=== PATIENT | male | born 1985 | race Hispanic/Latino ===

== ENCOUNTER 2017-10-18 22:12 | Emergency (ER) | payer OTHER ==
[2017-10-18 22:20] VITALS: BP 117/71; RESP 18; TEMP 98.5; O2SAT 96
--- NOTE | 2017-10-18 23:05 | ED PDOC ---
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 Patient states that while playing football tonight, he fell while running onto his outstretched left hand, and now has pain worsening when he bends his 4th and 5th digits. He denies taking any medications prior to arrival. Otherwise, (-) head injury, (-) loss of consciousness, (-) prior hand injury, (-) other complaints at this time. Right hand dominant. PMD: Dr. Ospina Past Medical History Reviewed: Historical Data, Nursing Documentation, Vital Signs Vital Signs: Last Vital Signs Temp 98.5 F 10/18/17 22:18 Pulse 110 H 10/18/17 22:18 Resp 18 10/18/17 22:18 BP 117/71 10/18/17 22:18 Pulse Ox 96 10/18/17 22:18 - Medical History PMH: No Chronic Diseases - Surgical History Other surgeries: left ACL repair - Family History Family History: States: Unknown Family Hx - Social History Current smoker - smoking cessation education provided: No Alcohol: Social Drugs: Denies - Home Medications Home Medications: Ambulatory Orders Medication Instructions Recorded Naproxen 500 mg PO BID #20 tab 10/19/17 - Allergies Allergies/Adverse Reactions: Allergies Allergy/AdvReac Type Severity Reaction Status Date / Time No Known Allergies Allergy Verified 10/18/17 22:20 Review of Systems ROS Statement: Except As Marked, All Systems Reviewed And Found Negative Constitutional: Negative for: Other (head injury) Musculoskeletal: Positive for: Hand Pain (left hand, 4th and 5th digits) Neurological: Negative for: Other (loss of consciousness) Physical Exam - Reviewed Nursing Documentation Reviewed: Yes Vital Signs Reviewed: Yes - Physical Exam Comments: GENERAL APPEARANCE: Patient is awake, alert, oriented x 3, in no acute distress. Resting comfortably. SKIN: Warm, dry; (-) cyanosis. LEFT HAND: (+) tenderness and mild edema to lateral aspect over the 4th and 5th metacarpals, (-) ecchymosis, (-) erythema, (+) full ROM of hand, wrists, and all digits but pain on flexion of 4th and 5th digits. Capillary refill and sensation intact. HEART AND CARDIOVASCULAR: (-) irregularity; (-) murmur, (-) gallop. CHEST AND RESPIRATORY: (-) rales, (-) rhonchi, (-) wheezes; breath sounds equal. NEURO AND PSYCH: Mental status as above. - ECG O2 Sat by Pulse Oximetry: 96 (RA) Pulse Ox Interpretation: Normal Medical Decision Making Medical Decision Making: Time: 22:28 Initial Impression: acute hand pain s/p fall, r/o fracture Initial Plan: --Motrin 800 mg PO --Left hand XR --Re-evaluation 24 Hand XR reviewed: (+) oblique fracture of the 5th metacarpal (-)intra-articular involvement (-) displacement (-) dislocation Patient notified a Radiologist will review the ED reading if any change in treatment is needed we will contact him. 0055 Repeat HR: 86 Patient placed in ulnar gutter splint by nursery technicianpaul Medley. Application and placement verified by ED MD Bowden. NV intact s/p splint placement. Educated on splint care. Patient provided with CD of XR images for follow up. On re-evaluation, patient reports improvement of symptoms. On exam, patient remains AAOx3, in no acute distress. Lungs clear to auscultation, cardiac RRR, repeat neuro exam shows no focal findings. Vitals stable. Lab/Diagnostic results d/w the patient in great detail. Diagnosis of acute hand pain, metacarpal fracture s/p fall d/w the patient. Based on history, exam and diagnostic results, plan will be for outpatient follow up with ortho/hand. Patient instructed to follow-up with pmd / referral provided / the clinic in 1- 2 days without fail. Advised to take medication as prescribed. Return to the emergency room at any time for any new or worsening symptoms. Patient states he fully agrees with and understands discharge instructions. States that he agrees with the plan and disposition. Verbalized and repeated discharge instructions and plan. I have given the patient opportunity to ask any additional questions. Scribe Attestation: Documented by Mitzy Huang, acting as a scribe for Shawna Quan PA-C. Provider Scribe Attestation: All medical record entries made by the Scribe were at my direction and personally dictated by me. I have reviewed the chart and agree that the record accurately reflects my personal performance of the history, physical exam, medical decision making, and the department course for this patient. I have also personally directed, reviewed, and agree with the discharge instructions and disposition. Disposition - Clinical Impression Clinical Impression: Hand pain, Metacarpal bone fracture, Fall - Patient ED Disposition Is Patient to be Admitted: No Counseled Patient/Family Regarding: Studies Performed, Diagnosis, Need For Followup, Rx Given - Disposition Referrals: Ulises Neri MD [Staff Provider] - Adela Olivia MD [Staff Provider] - Disposition: Routine/Home Disposition Time: 00:53 Condition: STABLE Additional Instructions: FOLLOW UP WITH ORTHO OR HAND SOON POSSIBLE. REFERRALS PROVIDED. RETURN TO ED WITH ANY NEW OR WORSENING SYMPTOMS. KEEP SPLINT IN PLACE, CLEAN, AND DRY. ELEVATE EXTREMITY. The emergency medical care you received today was directed at your acute symptoms. If you were prescribed any medication, please fill it and take as directed. It may take several days for your symptoms to resolve. Return to the Emergency Department if your symptoms worsen, do not improve, or if you have any other problems. Please contact your doctor in 2 days for re-evaluation and follow up / or call one of the physicians/clinics you have been referred to that are listed on the Patient Visit Information form that is included in your discharge packet. Bring any paperwork you were given at discharge with you along with any medications you are taking to your follow up visit. Our treatment cannot replace ongoing medical care by a primary care provider (PCP) outside of the emergency department. Prescriptions: Naproxen 500 mg PO BID #20 tab Instructions: Hand Fracture, Muscle and Bone Pain (DC) Forms: [employer] (Kiswahili) Print Language: SWAZI - POA Present On Arrival: Falls Or Trauma
[2017-10-19 00:57] VITALS: PULSE 86
--- NOTE | 2017-10-19 08:57 | RAD ---
PROCEDURE: Left Hand Radiographs. HISTORY: joint pain s/p football injury COMPARISON: None. FINDINGS: BONES: There is an acute oblique nondisplaced fracture in the midshaft of the 5th metacarpal. Bone alignment and mineralization are normal JOINTS: Normal. SOFT TISSUES: There is mild soft tissue swelling overlying the 5th metacarpal. OTHER FINDINGS: None. IMPRESSION: Acute oblique nondisplaced fracture in the midshaft of the 5th metacarpal with overlying soft tissue swelling.
== END 2017-10-19 01:16 | disposition home or self-care (01) ==
LOC: H.ER 22:12
DX: S62.301A Unspecified fracture of second metacarpal bone, left hand, initial encounter for closed fracture (principal); X50.9XXA Other and unspecified overexertion or strenuous movements or postures, initial encounter; Y93.61 Activity, american tackle football